=== PATIENT | female | born 1990 | race Caucasian/White ===

== ENCOUNTER 2019-01-28 17:20 | Emergency (ER) | payer MEDICAID ==
[~2019-01-28] VITALS: Ht 162.6 cm; Wt 78.0 kg
[~2019-01-28 17:20] MED LIST: ONDA4TAB6 PO
[2019-01-28] MEDS ORDERED: normal saline 1000ML IV soln IVB ONE (17:40)
[2019-01-28] MEDS ORDERED: ondansetron/PF 4mg/2ml inj IV ONE (17:40)
[2019-01-28] MEDS ORDERED: tamsulosin 0.4mg capsule PO ONE (17:40)
[2019-01-28] MEDS ORDERED: morphine 4 MG/ML inj SYRINge IV ONE (17:40)
[2019-01-28] MEDS ORDERED: ketorolac trometh. 30mg/ml inj. IV ONE (17:40)
[2019-01-28 17:52] LABS: BASOPHILS # (AUTO) 0.1 X10'3 (0-0.2); BASOPHILS % (AUTO) 0.5 % (0-1); EOSINOPHILS # (AUTO) 0.1 X10'3 (0-0.9); EOSINOPHILS % (AUTO) 1.2 % (0-6); HEMATOCRIT 40.9 % (35.0-45.0); HEMOGLOBIN 13.6 g/dl (12.0-16.0); LYMPHOCYTES # (AUTO) 1.6 X10'3 (1.1-4.8); LYMPHOCYTES % (AUTO) 13.8 % (21-51); MEAN CORPUSCULAR HEMOGLOBIN 29.6 PG (27.0-31.0); MEAN CORPUSCULAR HGB CONC 33.2 g/dL (33.0-36.5); MEAN CORPUSCULAR VOLUME 89.1 FL (78-98); MEAN PLATELET VOLUME 8.5 FL (7.4-10.4); MONOCYTES # (AUTO) 1.1 X10'3 (0-0.9); MONOCYTES % (AUTO) 9.5 % (2-12); NEUTROPHILS # (AUTO) 8.9 X10'3 (1.8-7.7); PLATELET COUNT 361 X10'3 (140-440); RED BLOOD COUNT 4.59 X10'6 (4.20-5.60); RED CELL DISTRIBUTION WIDTH 14.1 % (11.5-14.5); WHITE BLOOD COUNT 11.8 X10'3 (4.5-11.0)
[2019-01-28 18:05] LABS: ALANINE AMINOTRANSFERASE 16 U/L (12-78); ALBUMIN 4.1 G/DL (3.4-5.0); ALKALINE PHOSPHATASE 99 IU/L (46-116); ANION GAP 9 (8-16); ASPARTATE AMINO TRANSFERASE 10 U/L (10-37); BILIRUBIN,TOTAL 1.1 MG/DL (0.1-1.0); BLOOD UREA NITROGEN 8 MG/DL (7-18); BUN/CREATININE RATIO 10.3 (6.6-38.0); CALCIUM 9.4 MG/DL (8.5-10.1); CHLORIDE 100 MMOL/L (99-107); CREATININE 0.78 MG/DL (0.40-0.90); GLUCOSE 106 MG/DL (70-104); POTASSIUM 3.7 MMOL/L (3.5-5.1); SODIUM 138 MMOL/L (135-145); TOTAL CARBON DIOXIDE 28.8 MMOL/L (24-32); TOTAL PROTEIN 8.4 G/DL (6.4-8.2); eGFR 89 ML/MIN
[2019-01-28 18:32] LABS: URINE HCG NEGATIVE (NEG)
[2019-01-28 18:34] LABS: CLARITY,URINE SLIGHTLY CLOUDY (Clear); COLOR,URINE YELLOW (Yellow); GLUCOSE, URINE NEGATIVE (Neg); KETONES,URINE TRACE mg/dl (Neg); LEUKOCYTE ESTERASE ,URINE TRACE (Neg); NITRITES, URINE NEGATIVE (Neg); OCCULT BLOOD,URINE TRACE-LYSED (Neg); PROTEIN,URINE TRACE mg/dl (Neg)
[2019-01-28 18:44] LABS: UA COLLECTION TYPE CLN CATCH MIDSTREAM
[2019-01-28 18:45] LABS: BACTERIA,URINE 2+ /HPF (Neg); RBC,URINE 0-2 /HPF (0-2); SQUAMOUS EPITHELIAL CELL,UR MANY /LPF (FEW)
[2019-01-28 19:42] VITALS: BP 115/68
[2019-01-28] MEDS ORDERED: FLO0.4C PO (20:14)
[2019-01-28] MEDS ORDERED: NAPR-56 PO (20:14)
== END 2019-01-28 20:24 | disposition home or self-care (01) ==
LOC: ER 17:21
DX: R10.31 Right lower quadrant pain (principal); R19.7 Diarrhea, unspecified; Z90.49 Acquired absence of other specified parts of digestive tract; Z88.2 Allergy status to sulfonamides; Z91.040 Latex allergy status; Z79.899 Other long term (current) drug therapy
CPT/HCPCS: 36415; 80053; 81001; 81025; 85025; 96361; 96374; 96375; 99283; J1885; J2270; J2405; J7030

== ENCOUNTER 2019-01-31 22:53 | Inpatient (IN) | payer MEDICAID ==
[~2019-01-31] VITALS: Ht 163.8 cm; Wt 79.0 kg
[~2019-01-31 22:53] MED LIST changes: +FLO0.4C PO; +NAPR-56 PO
[2019-01-31 23:50] LABS: CLARITY,URINE CLEAR (Clear); COLOR,URINE YELLOW (Yellow); GLUCOSE, URINE NEGATIVE (Neg); KETONES,URINE NEGATIVE (Neg); LEUKOCYTE ESTERASE ,URINE NEGATIVE (Neg); NITRITES, URINE POSITIVE (Neg); OCCULT BLOOD,URINE TRACE-INTACT (Neg); PH,URINE 8.5 (4.8-8.0); PROTEIN,URINE NEGATIVE (Neg); UROBILINOGEN,URINE 0.2 E.U/dL (0.2-1.0)
[2019-01-31 23:52] LABS: BASOPHILS # (AUTO) 0.1 X10'3 (0-0.2); BASOPHILS % (AUTO) 0.6 % (0-1); EOSINOPHILS # (AUTO) 0.3 X10'3 (0-0.9); EOSINOPHILS % (AUTO) 1.9 % (0-6); HEMATOCRIT 36.4 % (35.0-45.0); HEMOGLOBIN 12.6 g/dl (12.0-16.0); LYMPHOCYTES # (AUTO) 1.2 X10'3 (1.1-4.8); LYMPHOCYTES % (AUTO) 7.4 % (21-51); MEAN CORPUSCULAR HEMOGLOBIN 29.9 PG (27.0-31.0); MEAN CORPUSCULAR HGB CONC 34.5 g/dL (33.0-36.5); MEAN CORPUSCULAR VOLUME 86.7 FL (78-98); MEAN PLATELET VOLUME 8.6 FL (7.4-10.4); MONOCYTES # (AUTO) 1.4 X10'3 (0-0.9); MONOCYTES % (AUTO) 8.9 % (2-12); NEUTROPHILS # (AUTO) 12.8 X10'3 (1.8-7.7); NEUTROPHILS % (AUTO) 81.2 % (42-75); PLATELET COUNT 354 X10'3 (140-440); RED CELL DISTRIBUTION WIDTH 14.4 % (11.5-14.5); WHITE BLOOD COUNT 15.7 X10'3 (4.5-11.0)
[2019-01-31 23:56] LABS: UA COLLECTION TYPE CLN CATCH MIDSTREAM
[2019-01-31 23:58] LABS: BACTERIA,URINE 3+ /HPF (Neg); RBC,URINE NONE SEEN /HPF (0-2); SQUAMOUS EPITHELIAL CELL,UR FEW /LPF (FEW); WBC,URINE 0-4 /HPF (0-4)
[2019-02-01 00:04] LABS: ALANINE AMINOTRANSFERASE 14 U/L (12-78); ALBUMIN 3.7 G/DL (3.4-5.0); ALBUMIN/GLOBULIN RATIO 0.9 (1.1-1.5); ALKALINE PHOSPHATASE 81 IU/L (46-116); ANION GAP 4 (8-16); ASPARTATE AMINO TRANSFERASE 11 U/L (10-37); BILIRUBIN,TOTAL 0.5 MG/DL (0.1-1.0); BLOOD UREA NITROGEN 7 MG/DL (7-18); CALCIUM 9.2 MG/DL (8.5-10.1); CHLORIDE 103 MMOL/L (99-107); GLUCOSE 116 MG/DL (70-104); LIPASE < 50 U/L (73-393); POTASSIUM 3.6 MMOL/L (3.5-5.1); SODIUM 136 MMOL/L (135-145); TOTAL CARBON DIOXIDE 29.1 MMOL/L (24-32); TOTAL PROTEIN 7.7 G/DL (6.4-8.2); eGFR > 90 ML/MIN
[2019-02-01] MEDS ORDERED: normal saline 1000ML IV soln IV ONE (01:45)
[2019-02-01] MEDS ORDERED: CefTRIAXone 2gm/D5W 50ml 50 ML IV ONE (01:45)
[2019-02-01] MEDS ORDERED: morphine 4 MG/ML inj SYRINge IV ONE (03:35)
[2019-02-01] MEDS ORDERED: morphine 2 MG/ML inj. syringe IV PRN ×2 (03:35→06:00)
--- NOTE | 2019-02-01 03:36 | NUR ---
Pt. transferred to CT scan by tech at this time.
[2019-02-01] MEDS ORDERED: LORA-268 PO (05:39)
[2019-02-01] MEDS ORDERED: CYCL-1 PO (05:39)
[2019-02-01] MEDS ORDERED: magnesium 4gm in 100ml NS 100 ML IV PRN (05:45)
[2019-02-01] MEDS ORDERED: magnesium hydroxide 30ml (MOM) UD suspension PO PRN (05:45)
[2019-02-01] MEDS ORDERED: potassium CL 10mEq/100ml bag 100 ML IV PRN ×2 (05:45)
[2019-02-01] MEDS ORDERED: acetaminophen 325mg tablet PO PRN ×2 (05:45)
[2019-02-01] MEDS ORDERED: magnesium Cl slow-release 64mg tablet PO PRN (05:45)
[2019-02-01] MEDS ORDERED: normal saline 1000ml 1,000 ML IV ONE (05:45)
[2019-02-01] MEDS ORDERED: mag hydrox/Alum hydrox/simeth 30ml oral suspension PO PRN (05:45)
[2019-02-01] MEDS ORDERED: magnesium 2GM in 50ml NS 50 ML IV PRN (05:45)
[2019-02-01] MEDS ORDERED: potassium Cl 20 mEq SR tablet PO PRN ×2 (05:45)
[2019-02-01] MEDS ORDERED: cyclobenzaprine 10mg tablet PO PRN (05:55)
[2019-02-01] MEDS ORDERED: LORazepam 0.5 MG tablet PO PRN (05:55)
--- NOTE | 2019-02-01 06:38 | NUR ---
ATTEMPTED TO CALL REPORT. NO RN ASSIGNED. WILL CALL BACK.
--- NOTE | 2019-02-01 06:53 | NUR ---
ATTEMPTED TO CALL REPORT. NO RN ASSIGNED, WILL CALL BACK
--- NOTE | 2019-02-01 07:03 | NUR ---
RECEIVED REPORT FORM ZOE LA IN ER
[2019-02-01 07:27] VITALS: BP 113/88
[2019-02-01] MEDS: ibuprofen tablet 400 MG TABLET PO SCH ×3 (08:00→20:11)
[2019-02-01] MEDS: K and/or MAG REPLACEMENT MC SCH ×2 (08:00→20:00)
[2019-02-01] MEDS: lactobacillus rhamnosus 10,000 MMU CELLS/CAPSULE PO SCH ×2 (09:02→20:11)
[2019-02-01] MEDS: ondansetron/PF 4mg/2ml inj IV PRN ×2 (09:03→15:28)
[2019-02-01 11:00] VITALS: BP 132/62
--- NOTE | 2019-02-01 15:00 | NUR ---
GAVE REPORT TO ZOE WORLEY AND ZOE HOOKER
--- NOTE | 2019-02-01 15:39 | NUR ---
Pt. states she is a daily smoker and would like a smoking patch. messaged Dr Connors for a smoking patch.
[2019-02-01] MEDS: nicotine 14mg patch - 24hr TD SCH (16:26)
[2019-02-01 18:00] VITALS: BP 118/75
--- NOTE | 2019-02-01 18:13 | NUR ---
Patient in room [facility] 341. I have received report from Delaney RN and Chaka RN and had the opportunity to ask questions and assume patient care.
--- NOTE | 2019-02-01 18:46 | NUR ---
Problems reprioritized. Patient report given, questions answered & plan of care reviewed with ZOE MARRERO .
[2019-02-02 00:19] VITALS: BP 111/83
[2019-02-02 05:28] LABS: BASOPHILS # (AUTO) 0.1 X10'3 (0-0.2); BASOPHILS % (AUTO) 0.7 % (0-1); EOSINOPHILS # (AUTO) 0.3 X10'3 (0-0.9); EOSINOPHILS % (AUTO) 4.2 % (0-6); HEMATOCRIT 31.8 % (35.0-45.0); HEMOGLOBIN 10.9 g/dl (12.0-16.0); LYMPHOCYTES % (AUTO) 41.7 % (21-51); MEAN CORPUSCULAR HEMOGLOBIN 30.4 PG (27.0-31.0); MEAN CORPUSCULAR HGB CONC 34.3 g/dL (33.0-36.5); MEAN CORPUSCULAR VOLUME 88.7 FL (78-98); MEAN PLATELET VOLUME 8.7 FL (7.4-10.4); MONOCYTES # (AUTO) 0.6 X10'3 (0-0.9); NEUTROPHILS # (AUTO) 3.3 X10'3 (1.8-7.7); NEUTROPHILS % (AUTO) 45.4 % (42-75); PLATELET COUNT 272 X10'3 (140-440); RED BLOOD COUNT 3.59 X10'6 (4.20-5.60); RED CELL DISTRIBUTION WIDTH 13.7 % (11.5-14.5); WHITE BLOOD COUNT 7.3 X10'3 (4.5-11.0)
[2019-02-02 06:01] LABS: ALBUMIN 2.9 G/DL (3.4-5.0); ANION GAP 7 (8-16); BLOOD UREA NITROGEN 4 MG/DL (7-18); BUN/CREATININE RATIO 5.7 (6.6-38.0); CALCIUM 8.7 MG/DL (8.5-10.1); CHLORIDE 106 MMOL/L (99-107); GLUCOSE 94 MG/DL (70-104); POTASSIUM 3.6 MMOL/L (3.5-5.1); SODIUM 142 MMOL/L (135-145); TOTAL CARBON DIOXIDE 28.7 MMOL/L (24-32); eGFR > 90 ML/MIN
--- NOTE | 2019-02-02 06:46 | NUR ---
Problems reprioritized. Patient report given, questions answered & plan of care reviewed with ZOE Baltazar.
[2019-02-02 07:00] VITALS: BP 111/65
[2019-02-02] MEDS: K and/or MAG REPLACEMENT MC SCH (08:00)
[2019-02-02] MEDS: nicotine 14mg patch - 24hr TD SCH (08:00)
[2019-02-02] MEDS ORDERED: CIPR-259 PO (08:40)
[2019-02-02] MEDS: ibuprofen tablet 400 MG TABLET PO SCH (08:50)
[2019-02-02] MEDS: lactobacillus rhamnosus 10,000 MMU CELLS/CAPSULE PO SCH (08:50)
--- NOTE | 2019-02-02 10:30 | NUR ---
Patient discharged home. Patient IV removed, patient educated on signs and symptoms for which to return to the hospital and when and how to follow up with primary care provider. Patient alert, oriented, and stable for discharge. Patient verbalized understanding of all discharge instructions and left with all belongings. Medications called into pharmacy, importance of take entirety of antibiotics was emphasized.
[2019-02-02] MEDS ORDERED: CefTRIAXone 2gm/D5W 50ml 50 ML IV SCH (21:00)
== END 2019-02-02 10:45 | disposition home or self-care (01) | DRG 463 ==
LOC: ER 22:54 → ED HOLD 02-01 05:43 → SUR 3N 02-01 07:10
PROVIDERS: ADMIT Hospitalist; ATTEND Internal Medicine
DX: N10 Acute pyelonephritis (principal); B96.20 Unspecified Escherichia coli [E. coli] as the cause of diseases classified elsewhere; F17.210 Nicotine dependence, cigarettes, uncomplicated; N20.0 Calculus of kidney; Z90.49 Acquired absence of other specified parts of digestive tract; Z88.2 Allergy status to sulfonamides; Z91.040 Latex allergy status; Z79.899 Other long term (current) drug therapy; Z71.6 Tobacco abuse counseling
CPT/HCPCS: 36415; 71045; 74176; 80048; 80053; 81001; 83605; 83690; 83735; 84145; 85025; 87040; 87077; 87081; 87088; 87186; 87502; 87503; 96365; 96375; 99285; G0378; J0696; J2270; J2405

== ENCOUNTER 2019-10-04 14:41 | Inpatient (IN) | payer MEDICAID ==
[~2019-10-04] VITALS: Ht 165.1 cm; Wt 81.8 kg
[~2019-10-04 14:41] MED LIST changes: +CYCL-1 PO; -FLO0.4C PO; +LORA-268 PO; -NAPR-56 PO; -ONDA4TAB6 PO
[2019-10-04] MEDS ORDERED: ondansetron/PF 4mg/2ml inj IV ONE (15:10)
[2019-10-04] MEDS ORDERED: normal saline 1000ML IV soln IVB ONE ×2 (15:10→15:40)
[2019-10-04 15:19] LABS: BASOPHILS # (AUTO) 0.1 X10'3 (0-0.2); BASOPHILS % (AUTO) 0.3 % (0-1); EOSINOPHILS % (AUTO) 0 % (0-6); HEMATOCRIT 39.6 % (35.0-45.0); LYMPHOCYTES # (AUTO) 0.7 X10'3 (1.1-4.8); LYMPHOCYTES % (AUTO) 3.3 % (21-51); MEAN CORPUSCULAR HEMOGLOBIN 28.5 PG (27.0-31.0); MEAN CORPUSCULAR HGB CONC 32.8 g/dL (33.0-36.5); MEAN CORPUSCULAR VOLUME 86.7 FL (78-98); MEAN PLATELET VOLUME 9.4 FL (7.4-10.4); MONOCYTES # (AUTO) 0.4 X10'3 (0-0.9); MONOCYTES % (AUTO) 1.6 % (2-12); NEUTROPHILS # (AUTO) 20.9 X10'3 (1.8-7.7); NEUTROPHILS % (AUTO) 94.8 % (42-75); PLATELET COUNT 348 X10'3 (140-440); RED BLOOD COUNT 4.57 X10'6 (4.20-5.60); RED CELL DISTRIBUTION WIDTH 13.5 % (11.5-14.5)
[2019-10-04 15:33] LABS: ALANINE AMINOTRANSFERASE 18 U/L (12-78); ALBUMIN 4.1 G/DL (3.4-5.0); ALKALINE PHOSPHATASE 72 IU/L (46-116); ANION GAP 15 (8-16); ASPARTATE AMINO TRANSFERASE 19 U/L (10-37); BILIRUBIN,TOTAL 0.9 MG/DL (0.1-1.0); BLOOD UREA NITROGEN 10 MG/DL (7-18); CALCIUM 8.9 MG/DL (8.5-10.1); CHLORIDE 102 MMOL/L (99-107); CREATININE 0.91 MG/DL (0.40-0.90); GLUCOSE 153 MG/DL (70-104); LIPASE < 50 U/L (73-393); POTASSIUM 3.9 MMOL/L (3.5-5.1); SODIUM 138 MMOL/L (135-145); TOTAL CARBON DIOXIDE 20.9 MMOL/L (24-32); TOTAL PROTEIN 8.1 G/DL (6.4-8.2); eGFR 75 ML/MIN
[2019-10-04] MEDS ORDERED: proCHLORperazine 10 MG/2 ml inj IV ONE (15:40)
[2019-10-04 15:48] LABS: HCG SERUM QL NEGATIVE
[2019-10-04 17:27] LABS: CLARITY,URINE CLEAR (Clear); COLOR,URINE STRAW (Yellow); GLUCOSE, URINE NEGATIVE (Neg); KETONES,URINE 40 mg/dl (Neg); LEUKOCYTE ESTERASE ,URINE NEGATIVE (Neg); NITRITES, URINE NEGATIVE (Neg); OCCULT BLOOD,URINE SMALL (Neg); PROTEIN,URINE NEGATIVE (Neg); UROBILINOGEN,URINE 0.2 E.U/dL (0.2-1.0)
[2019-10-04 17:29] LABS: UA COLLECTION TYPE CLN CATCH MIDSTREAM
[2019-10-04 17:34] LABS: BACTERIA,URINE FEW /HPF (Neg); MUCUS STRANDS FEW /LPF (Neg); SQUAMOUS EPITHELIAL CELL,UR MODERATE /LPF (FEW); WBC,URINE 0-4 /HPF (0-4)
[2019-10-04 17:36] LABS: URINE AMPHETAMINE SCREEN NEGATIVE (Neg); URINE BARBITUATE SCREEN NEGATIVE (Neg); URINE BENZODIAZEPINES SCREEN NEGATIVE (Neg); URINE CANNABINOID SCREEN POSITIVE (Neg); URINE COCAINE SCREEN NEGATIVE (Neg); URINE METHADONE SCREEN NEGATIVE (Neg); URINE OPIATE SCREEN NEGATIVE (Neg); URINE PHENCYCLIDINE SCREEN NEGATIVE (Neg)
[2019-10-04] MEDS ORDERED: GABA-530 PO (17:37)
[2019-10-04] MEDS ORDERED: magnesium 4gm in 100ml NS 100 ML IV PRN (18:00)
[2019-10-04] MEDS ORDERED: acetaminophen 325mg tablet PO PRN ×2 (18:00)
[2019-10-04] MEDS ORDERED: morphine 2 MG/ML inj. syringe IV PRN ×2 (18:00)
[2019-10-04] MEDS ORDERED: potassium CL 10mEq/100ml bag 100 ML IV PRN (18:00)
[2019-10-04] MEDS ORDERED: magnesium Cl slow-release 64mg tablet PO PRN (18:00)
[2019-10-04] MEDS ORDERED: HYDROcodone/acetaminophen 5mg/325mg tablet PO PRN (18:00)
[2019-10-04] MEDS ORDERED: potassium Cl 20 mEq SR tablet PO PRN (18:00)
[2019-10-04] MEDS ORDERED: HYDROcodone/acetaminophen 10/325mg tab PO PRN (18:00)
[2019-10-04] MEDS ORDERED: magnesium 2GM in 50ml NS 50 ML IV PRN (18:00)
[2019-10-04 18:07] LABS: URINE HCG NEGATIVE (NEG)
[2019-10-04] MEDS: normal saline 1000ml 1,000 ML IV SCH (18:16)
[2019-10-04] MEDS ORDERED: piperacillin/tazo 3.375gm/50ml 50 ML IV SCH (19:00)
[2019-10-04] MEDS: VANCOmycin 1250MG/NS 250ml Bag 250 ML IV SCH (19:21)
[2019-10-04] MEDS: heparin, porcine 5000 units/ml vial SQ SCH (20:00)
[2019-10-04] MEDS: K and/or MAG REPLACEMENT MC SCH (20:00)
--- NOTE | 2019-10-04 20:22 | NUR ---
Tried to call report to the floor. Told the RN was in an isolation room and would call back in a few minutes.
[2019-10-04] MEDS ORDERED: temazepam 15mg capsule PO PRN (21:00)
[2019-10-04 21:02] VITALS: BP 135/67
[2019-10-04] MEDS ORDERED: diatrozoate meglu/diatrozoate sod (37% iodine) 120ML oral solution PO SCH (21:10)
[2019-10-04] MEDS: ondansetron/PF 4mg/2ml inj IV PRN (21:51)
[2019-10-04] MEDS: diatr meglu/diatrizoate 30ml oral sol.-(3 dose) bottle PO SCH ×2 (22:15→22:34)
--- NOTE | 2019-10-04 22:37 | NUR ---
Patient refused gastrografin stating "I know I'm going to throw it up." Explained the benefits of taking it for her CT in the morning but she still refuses it.
--- NOTE | 2019-10-04 22:41 | NUR ---
Spoke with Dr. Diane in regards to patients lactic level. I stated that it came down to 2.8 and another redraw was ordered for 2300. I asked him if he wanted to make any changes. There is no new orders at this time and he stated that we do not need to continue to check her lactic level after the next one at 2300.
[2019-10-05] MEDS: piperacillin/tazo 3.375gm/50ml 50 ML IV SCH ×3 (00:04→23:12)
[2019-10-05] MEDS: normal saline 1000ml 1,000 ML IV SCH ×3 (01:48→17:59)
[2019-10-05] MEDS: VANCOmycin 1250MG/NS 250ml Bag 250 ML IV SCH ×2 (02:40→18:28)
[2019-10-05 06:00] VITALS: BP 106/64
[2019-10-05 06:11] LABS: BASOPHILS % (AUTO) 0.2 % (0-1); EOSINOPHILS # (AUTO) 0.1 X10'3 (0-0.9); EOSINOPHILS % (AUTO) 0.5 % (0-6); HEMATOCRIT 31.2 % (35.0-45.0); HEMOGLOBIN 10.4 g/dl (12.0-16.0); LYMPHOCYTES # (AUTO) 2.7 X10'3 (1.1-4.8); MEAN CORPUSCULAR HEMOGLOBIN 28.9 PG (27.0-31.0); MEAN CORPUSCULAR HGB CONC 33.3 g/dL (33.0-36.5); MEAN CORPUSCULAR VOLUME 86.7 FL (78-98); MEAN PLATELET VOLUME 9.9 FL (7.4-10.4); MONOCYTES % (AUTO) 6.7 % (2-12); NEUTROPHILS # (AUTO) 11.8 X10'3 (1.8-7.7); NEUTROPHILS % (AUTO) 75.6 % (42-75); PLATELET COUNT 240 X10'3 (140-440); RED CELL DISTRIBUTION WIDTH 13.4 % (11.5-14.5); WHITE BLOOD COUNT 15.6 X10'3 (4.5-11.0)
--- NOTE | 2019-10-05 06:11 | NUR ---
Problems reprioritized. Patient report given, questions answered & plan of care reviewed with Olga ENRIQUEZ.
--- NOTE | 2019-10-05 06:24 | NUR ---
Patient in room [facility]TH[facility] 4012. I have received report from Cindy ENRIQUEZ and had the opportunity to ask questions and assume patient care.
[2019-10-05 06:34] LABS: ALANINE AMINOTRANSFERASE 14 U/L (12-78); ALKALINE PHOSPHATASE 47 IU/L (46-116); ANION GAP 11 (8-16); ASPARTATE AMINO TRANSFERASE 14 U/L (10-37); BLOOD UREA NITROGEN 7 MG/DL (7-18); BUN/CREATININE RATIO 11.5 (6.6-38.0); CALCIUM 7.2 MG/DL (8.5-10.1); CHLORIDE 108 MMOL/L (99-107); CREATININE 0.61 MG/DL (0.40-0.90); GLUCOSE 94 MG/DL (70-104); MAGNESIUM 1.4 MG/DL (1.5-2.4); POTASSIUM 3.1 MMOL/L (3.5-5.1); SODIUM 141 MMOL/L (135-145); TOTAL CARBON DIOXIDE 21.6 MMOL/L (24-32); TOTAL PROTEIN 5.9 G/DL (6.4-8.2); eGFR > 90 ML/MIN
[2019-10-05] MEDS: K and/or MAG REPLACEMENT MC SCH ×2 (08:00→19:02)
[2019-10-05] MEDS: ondansetron/PF 4mg/2ml inj IV PRN ×3 (08:11→20:53)
[2019-10-05] MEDS: heparin, porcine 5000 units/ml vial SQ SCH ×2 (08:13→19:16)
--- NOTE | 2019-10-05 08:13 | NUR ---
Heparin administration was double checked and observed for nursing program coordinator Mela Dillon.
[2019-10-05] MEDS: potassium CL 10mEq/100ml bag 100 ML IV PRN ×2 (08:14→16:53)
[2019-10-05] MEDS: pantoprazole 40 MG vial IV SCH (09:01)
--- NOTE | 2019-10-05 09:56 | NUR ---
PAGER ID: [phone] MESSAGE: RE: [id number] Maria M Gambino Pt refused oral contrast for CT d/t vomiting. RILEY [id number]
[2019-10-05 10:05] VITALS: BP 118/70
[2019-10-05 10:45] LABS: C DIFF ANTIGEN NEGATIVE (NEGATIVE); C DIFF SPECIMEN=DIARRHEA? ACCEPTABLE; C DIFFICILE TOXINS A&B NEGATIVE (Neg)
[2019-10-05] MEDS ORDERED: iohexol 300mg/ml 100ml inj. ONE (11:21)
[2019-10-05] MEDS: metoclopramide 5 mg/ml inj IV PRN ×2 (12:05→19:03)
[2019-10-05 14:23] LABS: BASOPHILS % (AUTO) 0.3 % (0-1); EOSINOPHILS # (AUTO) 0.1 X10'3 (0-0.9); EOSINOPHILS % (AUTO) 0.4 % (0-6); HEMOGLOBIN 11.3 g/dl (12.0-16.0); LYMPHOCYTES # (AUTO) 2.1 X10'3 (1.1-4.8); LYMPHOCYTES % (AUTO) 14.8 % (21-51); MEAN CORPUSCULAR HEMOGLOBIN 29.5 PG (27.0-31.0); MEAN CORPUSCULAR HGB CONC 34.2 g/dL (33.0-36.5); MEAN CORPUSCULAR VOLUME 86.2 FL (78-98); MEAN PLATELET VOLUME 9.5 FL (7.4-10.4); MONOCYTES # (AUTO) 0.9 X10'3 (0-0.9); MONOCYTES % (AUTO) 6.4 % (2-12); NEUTROPHILS % (AUTO) 78.1 % (42-75); PLATELET COUNT 248 X10'3 (140-440); RED BLOOD COUNT 3.82 X10'6 (4.20-5.60); RED CELL DISTRIBUTION WIDTH 13.3 % (11.5-14.5); WHITE BLOOD COUNT 14.1 X10'3 (4.5-11.0)
[2019-10-05 18:00] VITALS: BP 128/66
--- NOTE | 2019-10-05 18:07 | NUR ---
Problems reprioritized. Patient report given, questions answered & plan of care reviewed with Cindy ENRIQUEZ.
--- NOTE | 2019-10-05 18:25 | NUR ---
Problems reprioritized. Patient report given, questions answered & plan of care reviewed with Cindy ENRIQUEZ.
[2019-10-05] MEDS ORDERED: VANCOMYCIN LEVEL IV ONE (18:30)
[2019-10-05] MEDS: lactobacillus rhamnosus 10,000 MMU CELLS/CAPSULE PO SCH (19:10)
[2019-10-05 22:00] VITALS: BP 121/63
[2019-10-05] MEDS: diatr meglu/diatrizoate 30ml oral sol.-(3 dose) bottle PO SCH (22:08)
[2019-10-06] MEDS: VANCOmycin 1250MG/NS 250ml Bag 250 ML IV SCH (00:34)
[2019-10-06] MEDS: normal saline 1000ml 1,000 ML IV SCH ×2 (00:35→09:59)
[2019-10-06] MEDS: metoclopramide 5 mg/ml inj IV PRN ×2 (00:55→07:31)
[2019-10-06] MEDS: ondansetron/PF 4mg/2ml inj IV PRN ×2 (02:59→11:49)
--- NOTE | 2019-10-06 05:58 | NUR ---
Problems reprioritized. Patient report given, questions answered & plan of care reviewed with Bettina ENRIQUEZ.
[2019-10-06 06:10] LABS: BASOPHILS # (AUTO) 0.1 X10'3 (0-0.2); BASOPHILS % (AUTO) 0.5 % (0-1); EOSINOPHILS % (AUTO) 0.2 % (0-6); HEMATOCRIT 34.4 % (35.0-45.0); HEMOGLOBIN 11.5 g/dl (12.0-16.0); LYMPHOCYTES # (AUTO) 2.7 X10'3 (1.1-4.8); LYMPHOCYTES % (AUTO) 18.8 % (21-51); MEAN CORPUSCULAR HEMOGLOBIN 28.9 PG (27.0-31.0); MEAN CORPUSCULAR HGB CONC 33.4 g/dL (33.0-36.5); MEAN CORPUSCULAR VOLUME 86.6 FL (78-98); MEAN PLATELET VOLUME 9.3 FL (7.4-10.4); MONOCYTES # (AUTO) 0.9 X10'3 (0-0.9); NEUTROPHILS # (AUTO) 10.7 X10'3 (1.8-7.7); NEUTROPHILS % (AUTO) 74.5 % (42-75); PLATELET COUNT 242 X10'3 (140-440); RED BLOOD COUNT 3.98 X10'6 (4.20-5.60); RED CELL DISTRIBUTION WIDTH 13.4 % (11.5-14.5); WHITE BLOOD COUNT 14.4 X10'3 (4.5-11.0)
--- NOTE | 2019-10-06 06:28 | NUR ---
Patient in room ORTH[facility] 4012. I have received report from Cindy and had the opportunity to ask questions and assume patient care.
[2019-10-06 06:35] LABS: ALANINE AMINOTRANSFERASE 20 U/L (12-78); ALBUMIN 3.4 G/DL (3.4-5.0); ALBUMIN/GLOBULIN RATIO 1.1 (1.1-1.5); ALKALINE PHOSPHATASE 55 IU/L (46-116); ANION GAP 14 (8-16); ASPARTATE AMINO TRANSFERASE 16 U/L (10-37); BILIRUBIN,TOTAL 0.9 MG/DL (0.1-1.0); BLOOD UREA NITROGEN 4 MG/DL (7-18); BUN/CREATININE RATIO 5.6 (6.6-38.0); CALCIUM 7.6 MG/DL (8.5-10.1); CHLORIDE 104 MMOL/L (99-107); CREATININE 0.72 MG/DL (0.40-0.90); GLUCOSE 99 MG/DL (70-104); MAGNESIUM 1.7 MG/DL (1.5-2.4); SODIUM 138 MMOL/L (135-145); TOTAL CARBON DIOXIDE 20.4 MMOL/L (24-32); TOTAL PROTEIN 6.6 G/DL (6.4-8.2); eGFR > 90 ML/MIN
--- NOTE | 2019-10-06 07:01 | NUR ---
Received a critical lab of K+ of 3.0 Internet is down
[2019-10-06] MEDS ORDERED: VANCOmycin 1250MG/NS 250ml Bag 250 ML IV SCH (07:03)
[2019-10-06] MEDS: potassium CL 10mEq/100ml bag 100 ML IV PRN (07:22)
[2019-10-06] MEDS: pantoprazole 40 MG vial IV SCH (07:31)
[2019-10-06] MEDS: heparin, porcine 5000 units/ml vial SQ SCH (07:31)
[2019-10-06] MEDS: lactobacillus rhamnosus 10,000 MMU CELLS/CAPSULE PO SCH (07:33)
[2019-10-06] MEDS: potassium Cl 20 mEq SR tablet PO PRN ×2 (08:23→09:51)
--- NOTE | 2019-10-06 08:40 | NUR ---
PAGER ID: [phone] MESSAGE: [id number] Maria M Gambino can I get a Imodium order for patient diarrhea shes had 4 bowl movements since 6 negative for cdiff also pt K+3.0 trying to replace patient . [id number] Bettina
--- NOTE | 2019-10-06 09:07 | NUR ---
Patient k+ was3.0 tried hanging first IV bag and the potassium was burning arm to bad so I stopped the administration. Pulled 2x 20 MEQ K Dura crushed and attempted to give to patient with ice cream.Patient immediately spit up and said she wants to try the whole tabs now.
[2019-10-06] MEDS: piperacillin/tazo 3.375gm/50ml 50 ML IV SCH (11:49)
[2019-10-06] MEDS ORDERED: METR-159 PO (12:46)
[2019-10-06] MEDS ORDERED: CIPR-230 PO (12:46)
[2019-10-07] MEDS ORDERED: VANCOMYCIN LEVEL IV ONE (00:30)
== END 2019-10-06 14:00 | disposition home or self-care (01) | DRG 249 ==
LOC: ER 14:41 → ED HOLD 17:59 → UNDOADMIN 17:59 → ED HOLD 20:53 → ORTHO 4S 20:53
PROVIDERS: ADMIT Internal Medicine; ATTEND Internal Medicine
DX: K52.9 Noninfective gastroenteritis and colitis, unspecified (principal); F12.10 Cannabis abuse, uncomplicated; F17.210 Nicotine dependence, cigarettes, uncomplicated; F31.9 Bipolar disorder, unspecified; F43.10 Post-traumatic stress disorder, unspecified; E87.6 Hypokalemia; Z90.49 Acquired absence of other specified parts of digestive tract; Z88.2 Allergy status to sulfonamides; Z88.8 Allergy status to other drugs, medicaments and biological substances; Z91.040 Latex allergy status
CPT/HCPCS: 36415; 74176; 74177; 80053; 80202; 80305; 81001; 81025; 83605; 83690; 83735; 84145; 84703; 85025; 87040; 87081; 87324; 87449; 99285; C9113; G0378; J0780; J1644; J2405; J2543; J2765; J3370; J3480; J7030; Q9963; Q9967

== ENCOUNTER 2019-12-02 12:01 | Emergency (ER) | payer MEDICAID ==
[~2019-12-02] VITALS: Ht 165.1 cm; Wt 82.6 kg
[~2019-12-02 12:01] MED LIST changes: -CYCL-1 PO; +GABA-530 PO; -LORA-268 PO
[2019-12-02 13:32] LABS: BASOPHILS % (AUTO) 0.2 % (0-1); EOSINOPHILS % (AUTO) 0 % (0-6); HEMOGLOBIN 13.3 g/dl (12.0-16.0); LYMPHOCYTES # (AUTO) 0.7 X10'3 (1.1-4.8); LYMPHOCYTES % (AUTO) 3.8 % (21-51); MEAN CORPUSCULAR HEMOGLOBIN 28.9 PG (27.0-31.0); MEAN CORPUSCULAR HGB CONC 33.4 g/dL (33.0-36.5); MEAN CORPUSCULAR VOLUME 86.6 FL (78-98); MEAN PLATELET VOLUME 9.2 FL (7.4-10.4); MONOCYTES # (AUTO) 0.6 X10'3 (0-0.9); MONOCYTES % (AUTO) 3.6 % (2-12); NEUTROPHILS % (AUTO) 92.4 % (42-75); PLATELET COUNT 426 X10'3 (140-440); RED BLOOD COUNT 4.62 X10'6 (4.20-5.60); RED CELL DISTRIBUTION WIDTH 13.5 % (11.5-14.5); WHITE BLOOD COUNT 17.3 X10'3 (4.5-11.0)
[2019-12-02 13:48] LABS: ALANINE AMINOTRANSFERASE 26 U/L (12-78); ALBUMIN 4.3 G/DL (3.4-5.0); ALBUMIN/GLOBULIN RATIO 1.1 (1.1-1.5); ALKALINE PHOSPHATASE 85 IU/L (46-116); ANION GAP 17 (8-16); ASPARTATE AMINO TRANSFERASE 15 U/L (10-37); BILIRUBIN,TOTAL 0.7 MG/DL (0.1-1.0); BLOOD UREA NITROGEN 7 MG/DL (7-18); BUN/CREATININE RATIO 7.9 (6.6-38.0); CALCIUM 9.2 MG/DL (8.5-10.1); CHLORIDE 100 MMOL/L (99-107); CREATININE 0.89 MG/DL (0.40-0.90); GLUCOSE 185 MG/DL (70-104); POTASSIUM 3.6 MMOL/L (3.5-5.1); SODIUM 138 MMOL/L (135-145); TOTAL CARBON DIOXIDE 21.5 MMOL/L (24-32); TOTAL PROTEIN 8.3 G/DL (6.4-8.2); eGFR 77 ML/MIN
[2019-12-02 13:54] LABS: BETA HCG,QUANTITATIVE < 1.0 mIU/ml; ETHANOL < 0.010 GM/DL (0.0-0.010); LIPASE < 50 U/L (73-393)
[2019-12-02] MEDS ORDERED: normal saline 1000ML IV soln IVB ONE ×2 (13:55→15:55)
[2019-12-02] MEDS ORDERED: morphine 10mg/ml inj. IV ONE (13:55)
[2019-12-02] MEDS ORDERED: LORazepam 2 mg/ml vial IV ONE (13:55)
[2019-12-02] MEDS ORDERED: proCHLORperazine 10 MG/2 ml inj IV ONE (13:55)
[2019-12-02] MEDS ORDERED: PROC25SU31 RC (16:12)
[2019-12-02 16:23] LABS: COLOR,URINE YELLOW (Yellow); GLUCOSE, URINE NEGATIVE (Neg); KETONES,URINE 40 mg/dl (Neg); LEUKOCYTE ESTERASE ,URINE NEGATIVE (Neg); NITRITES, URINE NEGATIVE (Neg); OCCULT BLOOD,URINE NEGATIVE (Neg); PROTEIN,URINE NEGATIVE (Neg); UROBILINOGEN,URINE 0.2 E.U/dL (0.2-1.0)
[2019-12-02 16:28] LABS: CLARITY,URINE SLIGHTLY CLOUDY (Clear); UA COLLECTION TYPE CLN CATCH MIDSTREAM; WBC,URINE 0-4 /HPF (0-4)
[2019-12-02 16:29] LABS: BACTERIA,URINE NONE SEEN /HPF (Neg); MUCUS STRANDS MANY /LPF (Neg); RBC,URINE NONE SEEN /HPF (0-2); SQUAMOUS EPITHELIAL CELL,UR MANY /LPF (FEW)
[2019-12-02 16:36] LABS: URINE AMPHETAMINE SCREEN NEGATIVE (Neg); URINE BARBITUATE SCREEN NEGATIVE (Neg); URINE BENZODIAZEPINES SCREEN NEGATIVE (Neg); URINE CANNABINOID SCREEN POSITIVE (Neg); URINE COCAINE SCREEN NEGATIVE (Neg); URINE METHADONE SCREEN NEGATIVE (Neg); URINE OPIATE SCREEN POSITIVE (Neg); URINE PHENCYCLIDINE SCREEN NEGATIVE (Neg)
[2019-12-02 17:44] VITALS: BP 107/74
== END 2019-12-02 17:46 | disposition home or self-care (01) ==
LOC: ER 12:02
DX: R10.9 Unspecified abdominal pain (principal); R11.2 Nausea with vomiting, unspecified; R19.7 Diarrhea, unspecified; K80.20 Calculus of gallbladder without cholecystitis without obstruction; F12.10 Cannabis abuse, uncomplicated; Z90.49 Acquired absence of other specified parts of digestive tract; Z88.2 Allergy status to sulfonamides; Z91.040 Latex allergy status
CPT/HCPCS: 36415; 80053; 80305; 80320; 81001; 83605; 83690; 84145; 84702; 85025; 87040; 96374; 96375; 99285; J0780; J2060; J2270; J7030; 96361

== ENCOUNTER 2020-03-14 11:16 | Emergency (ER) | payer MEDICAID ==
[~2020-03-14] VITALS: Ht 165.1 cm; Wt 79.0 kg
[2020-03-14] MEDS ORDERED: diphenhydrAMINE 50 mg/ml inj IV ONE (11:30)
[2020-03-14] MEDS ORDERED: normal saline 1000ml 1,000 ML IV ONE (11:30)
[2020-03-14] MEDS ORDERED: haloperidol lactate 5mg/ml inj IM ONE (11:30)
[2020-03-14] MEDS ORDERED: proCHLORperazine 10 MG/2 ml inj IV ONE (11:30)
--- NOTE | 2020-03-14 12:00 | NUR ---
Pt given a urine cup and is aware that we need a sample when she is able to get one.
[2020-03-14 12:24] LABS: BASOPHILS % (AUTO) 0.2 % (0-1); EOSINOPHILS % (AUTO) 0 % (0-6); HEMATOCRIT 38.4 % (35.0-45.0); HEMOGLOBIN 12.6 g/dl (12.0-16.0); LYMPHOCYTES # (AUTO) 0.8 X10'3 (1.1-4.8); LYMPHOCYTES % (AUTO) 6.2 % (21-51); MEAN CORPUSCULAR HEMOGLOBIN 28.4 PG (27.0-31.0); MEAN CORPUSCULAR HGB CONC 32.9 g/dL (33.0-36.5); MEAN CORPUSCULAR VOLUME 86.4 FL (78-98); MEAN PLATELET VOLUME 9.3 FL (7.4-10.4); MONOCYTES # (AUTO) 0.4 X10'3 (0-0.9); MONOCYTES % (AUTO) 3.2 % (2-12); NEUTROPHILS # (AUTO) 11.6 X10'3 (1.8-7.7); NEUTROPHILS % (AUTO) 90.4 % (42-75); PLATELET COUNT 335 X10'3 (140-440); RED BLOOD COUNT 4.45 X10'6 (4.20-5.60); RED CELL DISTRIBUTION WIDTH 13.5 % (11.5-14.5); WHITE BLOOD COUNT 12.8 X10'3 (4.5-11.0)
[2020-03-14 12:29] LABS: ALANINE AMINOTRANSFERASE 23 U/L (12-78); ALBUMIN 3.9 G/DL (3.4-5.0); ALBUMIN/GLOBULIN RATIO 1.1 (1.1-1.5); ALKALINE PHOSPHATASE 80 IU/L (46-116); ANION GAP 18 (8-16); ASPARTATE AMINO TRANSFERASE 15 U/L (10-37); BILIRUBIN,TOTAL 0.5 MG/DL (0.1-1.0); BLOOD UREA NITROGEN 10 MG/DL (7-18); BUN/CREATININE RATIO 11.9 (6.6-38.0); CALCIUM 8.8 MG/DL (8.5-10.1); CHLORIDE 104 MMOL/L (99-107); CREATININE 0.84 MG/DL (0.40-0.90); GLUCOSE 192 MG/DL (70-104); POTASSIUM 3.8 MMOL/L (3.5-5.1); SODIUM 142 MMOL/L (135-145); TOTAL PROTEIN 7.6 G/DL (6.4-8.2); eGFR 81 ML/MIN
[2020-03-14] MEDS ORDERED: ONDA4TAB6 PO (12:45)
[2020-03-14 13:02] VITALS: BP 146/90
[2020-03-14 13:02] LABS: CLARITY,URINE SLIGHTLY CLOUDY (Clear); COLOR,URINE YELLOW (Yellow); GLUCOSE, URINE NEGATIVE (Neg); KETONES,URINE >=80 mg/dl (Neg); LEUKOCYTE ESTERASE ,URINE NEGATIVE (Neg); NITRITES, URINE NEGATIVE (Neg); OCCULT BLOOD,URINE NEGATIVE (Neg); PH,URINE 8.5 (4.8-8.0); PROTEIN,URINE NEGATIVE (Neg); URINE HCG NEGATIVE (NEG); UROBILINOGEN,URINE 0.2 E.U/dL (0.2-1.0)
[2020-03-14 13:09] LABS: UA COLLECTION TYPE STRAIGHT CATH
[2020-03-14 13:10] LABS: BACTERIA,URINE NONE SEEN /HPF (Neg); MUCUS STRANDS MODERATE /LPF (Neg); RBC,URINE NONE SEEN /HPF (0-2); SQUAMOUS EPITHELIAL CELL,UR FEW /LPF (FEW); WBC,URINE 0-4 /HPF (0-4)
[2020-03-14 13:19] LABS: URINE AMPHETAMINE SCREEN NEGATIVE (Neg); URINE BARBITUATE SCREEN NEGATIVE (Neg); URINE BENZODIAZEPINES SCREEN NEGATIVE (Neg); URINE CANNABINOID SCREEN POSITIVE (Neg); URINE COCAINE SCREEN NEGATIVE (Neg); URINE METHADONE SCREEN NEGATIVE (Neg); URINE OPIATE SCREEN NEGATIVE (Neg); URINE PHENCYCLIDINE SCREEN NEGATIVE (Neg)
== END 2020-03-14 13:32 | disposition home or self-care (01) ==
LOC: ER 11:18
DX: F12.188 Cannabis abuse with other cannabis-induced disorder (principal); R11.2 Nausea with vomiting, unspecified; R19.7 Diarrhea, unspecified; R10.84 Generalized abdominal pain; Z90.49 Acquired absence of other specified parts of digestive tract; Z91.040 Latex allergy status; Z88.2 Allergy status to sulfonamides; Z79.899 Other long term (current) drug therapy
CPT/HCPCS: 36415; 80053; 80305; 81001; 81025; 85025; 96361; 96372; 96374; 96375; 99284; J0780; J1200; J1630; J7030

== ENCOUNTER 2024-10-27 11:53 | Emergency (ER) | payer MEDICAID ==
[~2024-10-27] VITALS: Ht 165.1 cm; Wt 80.1 kg
[~2024-10-27 11:53] MED LIST changes: +ONDA4TAB6 PO
[2024-10-27 12:53] LABS: CREATININE 0.95 MG/DL (0.40-0.90); TOTAL CARBON DIOXIDE 33.1 MMOL/L (24-32); eCRCL 77 ML/MIN; eGFR 69 ML/MIN
[2024-10-27 13:05] LABS: MEAN PLATELET VOLUME 9.0 FL (7.4-10.4); RED CELL DISTRIBUTION WIDTH 13.6 % (11.5-14.5)
--- NOTE | 2024-10-27 13:16 | Physician Documentation ---
History of Present Illness General Chief Complaint: Vomiting Stated Complaint: VOMITING Time Seen by MD: 13:08 Primary Medical Doctor[facility] Mode of Arrival: Ambulatory History of Present Illness Initial Comments The patient is a 33-year-old female with a history of cyclical vomiting. This episode started 6:00 a.m. yesterday morning. It has remained intractable. Medication Reconciliation Allergies: Coded Allergies: Latex, Natural Rubber (Unverified Allergy, Unknown, 10/27/24) Sulfa (Sulfonamide Antibiotics) (Unverified Allergy, Unknown, 10/27/24) adhesive (Verified Allergy, Unknown, 10/27/24) Scheduled Gabapentin (Gabapentin), 900 MG PO DAILY, (Reported) Ondansetron Hcl (Zofran), 1 TAB PO Q8H Past Medical History Past Medical History: *GI/HEPATOBILIARY*, Cholelithiasis Past Surgical History: cholecystectomy Alcohol Use: None Drug Use: marijuana Lives In: Home Review of Systems ROS Constitutional: Denies chills, fatigue, fever, weight gain or weight loss. HEENT: Denies hearing loss, sinus pressure or visual changes. Respiratory: Denies cough, shortness of breath or wheezing. Cardiovascular: Denies chest pain, pain while walking (claudication), edema or palpitations. Gastrointestinal: Nausea and vomiting Genitourinary: Denies painful urination (dysuria), excessive amount of urine (polyuria) or urinary frequency. Metabolic/Endocrine: Denies cold intolerance, heat intolerance, excessive thirst (polydipsia) or excessive hunger (polyphagia). Neurological: Denies dizziness, extremity numbness, extremity weakness, headaches, seizures or tremors. Psychiatric: Denies anxiety or depression. Integumentary: Denies breast discharge, breast lump, hives, mole change(s), rash or skin lesion. Musculoskeletal: Denies back pain, joint pain, joint swelling or neck pain. Hematologic: Denies easily bleeding, easily bruises, lymphedema or issues with blood clots. Immunologic: Denies food allergies or seasonal allergies. Physical Exam Physical Exam Vital Signs: Temperature: 98.1, Source: Oral, Heart Rate: 85, Respiratory Rate: 16, Pulse Oximetry: 95, Weight: 80.100 Physical Exam Physical Exam Vitals and nursing note reviewed. Constitutional: General: Patient is awake, alert, oriented x 4 in no acute distress and well appearing. Speech is clear and lucid. Appearance: Normal appearance. Patient is not ill-appearing, toxic-appearing or diaphoretic. HENT: Head: Normocephalic and atraumatic. Mouth/Throat: Mouth: Mucous membranes are moist. Pharynx: Oropharynx is clear. Eyes: General: No scleral icterus. Extraocular Movements: Extraocular movements intact. Pupils: Pupils are equal, round, and reactive to light. Neck: Supple, no Kernig or Brudzinski sign. Cardiovascular: Rate and Rhythm: Normal rate and regular rhythm. Heart sounds: No murmur heard. Pulmonary: Effort: No respiratory distress. Breath sounds: No wheezing, rhonchi or rales. Abdominal: General: There is no distension. Palpations: There is no fluid wave, hepatomegaly or mass. Tenderness: Epigastric tenderness Musculoskeletal: General: No swelling or deformity. Skin: Coloration: Skin is not jaundiced. Findings: No erythema or rash. Neurological: Mental Status: Patient is alert. Progress Results/Orders Results/Orders Orders - DEIDRA RYAN MD Ct Abdomen Pelvis (10/27/24 15:55) Completed Orders - DEIDRA RYAN MD Hcg, Ur Ql (10/27/24 12:06) Cbc/Diff (10/27/24 12:06) Lipase (10/27/24 12:06) Hcg Serum Ql (10/27/24 12:06) CMP (10/27/24 12:06) Man Diff (10/27/24 12:28) Ondansetron Inj. (Zofran 4mg/2ml Vial) (10/27/24 13:15) Normal Saline 1000ml (0.9% Sodium Chlori (10/27/24 13:15) Pantoprazole 40mg Iv (Protonix 40mg Iv) (10/27/24 13:14) Potassium Cl 10meq/100ml Bag (Potassium (10/27/24 13:20) MG (10/27/24 12:28) Ua W/Microscopic, Cult If Ind (10/27/24 13:00) Prochlorperazine Inj (Compazine Inj) (10/27/24 13:50) Diphenhydramine Inj (Benadryl Inj.) (10/27/24 13:50) Ct Abdomen Pelvis (10/27/24 15:55) Hs Troponin I W Calculations (10/27/24 13:51) Electrocardiogram (10/27/24 ) Iohexol 300mg/Ml 100ml Inj. (Omnipaque-3 (10/27/24 14:03) Medications Received in ER Medications (Trade) Dose Ordered Sig/Quin Route PRN Reason Start Time Stop Time Status Last Admin Dose Admin (Zofran 4mg/2ml vial) 8 mg ONCE ONCE IV 10/27/24 13:15 10/27/24 13:16 DC 10/27/24 13:29 8 MG Sodium Chloride 1,000 ml @ 1,000 mls/hr ONCE ONCE IV 10/27/24 13:15 10/27/24 14:14 DC 10/27/24 13:29 1,000 MLS/HR (Protonix 40mg IV) 40 mg ONCE STAT IV 10/27/24 13:14 10/27/24 13:17 DC 10/27/24 13:28 40 MG Potassium Chloride 100 ml @ 100 mls/hr Q1H IV 10/27/24 13:20 10/27/24 14:19 DC 10/27/24 13:29 100 MLS/HR (Compazine inj) 10 mg ONCE ONCE IV 10/27/24 13:50 10/27/24 13:53 DC 10/27/24 14:04 10 MG (Benadryl inj.) 50 mg ONCE ONCE IV 10/27/24 13:50 10/27/24 13:51 DC 10/27/24 14:03 50 MG Vital Signs 10/27/24 10/27/24 10/27/24 10/27/24 12:01 12:20 13:00 14:24 Temp 98.1 Pulse 85 80 77 Resp 16 18 16 B/P (MAP) 99/68 (78) 112/80 (91) Pulse Ox 95 98 98 O2 Flow Rate 0 0 10/27/24 10/27/24 10/27/24 15:25 16:30 17:30 Pulse 75 84 92 Resp 18 18 16 B/P (MAP) 108/67 (81) 108/67 (81) 118/71 (87) Pulse Ox 98 96 99 O2 Flow Rate 0 0 0 Laboratory Tests Test 10/27/24 12:28 10/27/24 13:00 10/27/24 14:02 White Blood Count 25.2 *H Red Blood Count 5.00 Hemoglobin 14.1 Hematocrit 42.1 Mean Corpuscular Volume 84.2 Mean Corpuscular Hemoglobin 28.3 Mean Corpuscular Hemoglobin Concent 33.6 Red Cell Distribution Width 13.6 Platelet Count 464 H Mean Platelet Volume 9.0 Neutrophils (%) (Auto) 86.2 H Lymphocytes (%) (Auto) 7.5 L Monocytes (%) (Auto) 6.0 Eosinophils (%) (Auto) 0 Basophils (%) (Auto) 0.3 Neutrophils # (Auto) 21.7 H Lymphocytes # (Auto) 1.9 Monocytes # (Auto) 1.5 H Eosinophils # (Auto) 0.0 Basophils # (Auto) 0.1 CBC Comment Differential Total Cells Counted 100 Neutrophils % (Manual) 85.0 H Lymphocytes % (Manual) 8.0 L Monocytes % (Manual) 7.0 Platelet Estimate Increased Red Blood Cell Morphology Normal Basophilic Stippling Sodium Level 142 Potassium Level 3.4 L Chloride Level 99 Carbon Dioxide Level 33.1 H Anion Gap 10 Blood Urea Nitrogen 17 Creatinine 0.95 H Estimated GFR/1.73 m2 69 BUN/Creatinine Ratio 17.9 Glucose Level 121 H Calcium Level 9.7 Magnesium Level 2.0 Total Bilirubin 1.7 H Aspartate Amino Transf (AST/SGOT) 26 Alanine Aminotransferase (ALT/SGPT) 18 Alkaline Phosphatase 82 Total Protein 8.9 H Albumin 4.4 Globulin 4.5 H Albumin/Globulin Ratio 1.0 L Lipase 12 L Human Chorionic Gonadotropin, Qual Negative Chemistry Comments Urine Specimen Description Cln catch midstream Urine Color Yellow Urine Clarity Cloudy Urine pH 8.0 Urine Specific [place] 1.010 Urine Protein 100 H Urine Glucose (UA) Negative Urine Ketones >=80 Urine Occult Blood Moderate H Urine Nitrite Negative Urine Bilirubin Small Urine Urobilinogen 1.0 Urine Leukocyte Esterase Negative Urine RBC 3-10 Urine WBC 0-4 Urine Squamous Epithelial Cells Many Urine Bacteria 1+ Urine Mucus Moderate Urine Culture Indicated Not ind Volume Urine Centrifuged 10 ml Urine HCG, Qualitative Negative Urine Comment Troponin I High Sensitivity 6 Medical Decision Making Findings EKG medically necessary in the evaluation of intractable vomiting and interpreted by me at the time of patient evaluation. Rhythm is sinus arrhythmia with a rate of 73. Impression: Borderline EKG. ECG reading does not show any acute signs of obvious ischemia. No evidence of A- V block. No short OR, delta waves, or wide QRS concerning for Veewd-Orhopthez-Vgdyj. No long QT events on my read. I do not see evidence of Brugada with ST elevations in V1 through V3. No epsilon wave noted. No low voltage suggestive of pericardial effusion. No right ventricular strain pattern. [place] [address] her abdomen which is consistent with colitis. She has improved in the emergency department. Patient succeeded at a fluid challenge. She would like to go home. Departure Disposition: HOME / SELF CARE / HOMELESS Impression: Primary Impression: Colitis Condition: Stable Discharge Instructions: Nausea and Vomiting, Adult Referrals: NO PRIMARY CARE PROVIDER (PCP) Signature Scribe Signature: . Attestation: . DEIDRA RYAN MD Oct 27, 2024 13:16
[2024-10-27 13:21] LABS: HCG SERUM QL NEGATIVE
[2024-10-27] MEDS: potassium CL 10mEq/100ml bag 100 ML IV SCH (13:29)
[2024-10-27] MEDS: normal saline 1000ml 1,000 ML IV ONE (13:29)
[2024-10-27] MEDS: ondansetron/PF 4mg/2ml inj IV ONE (13:29)
[2024-10-27 13:37] LABS: URINE HCG NEGATIVE (NEG)
[2024-10-27 13:39] LABS: LEUKOCYTE ESTERASE ,URINE NEGATIVE (Neg); NITRITES, URINE NEGATIVE (Neg); OCCULT BLOOD,URINE MODERATE (Neg)
[2024-10-27 13:41] LABS: UA COLLECTION TYPE CLN CATCH MIDSTREAM
[2024-10-27 13:51] LABS: MUCUS STRANDS MODERATE /LPF (Neg); SQUAMOUS EPITHELIAL CELL,UR MANY /LPF (FEW)
--- NOTE | 2024-10-27 13:59 | ELECTROCARDIOGRAPH REPORT ---
[facility] Test Date: 2024-10-27 Test Time: 13:57:24 Pat Name: ANTOINE ESCOBAR [facility]- [id number] Room: Gender: F Health Information Specialist: : 1990 Requested By: DEIDRA RYAN Order Number: [id number] Reading MD: Measurements Intervals [place] Rate: 73 P: 54 OR: 111 QRS: 52 QRSD: 95 T: -8 QT: 411 QTc: 453 Interpretive Statements Sinus arrhythmia Borderline short OR interval Borderline repolarization abnormality Please click the below link to view image of tracing.
[2024-10-27] MEDS ORDERED: iohexol 300mg/ml 100ml inj. ONE (14:03)
[2024-10-27 14:25] LABS: LYMPHOCYTES % (MANUAL) 8.0 % (21-51); MONOCYTES % (MANUAL) 7.0 % (2-12); NEUTROPHILS % (MANUAL) 85.0 % (42-75); PLATELET ESTIMATE INCREASED
--- NOTE | 2024-10-27 16:15 | RADIOLOGY REPORT ---
Indication: Intractable vomiting, WBC 25.2 Technique: CT axial images of the abdomen and pelvis are obtained with intravenous contrast. Coronal and sagittal reformats were obtained. Radiation Dose Information: CTDI volume is 23 mGy. Dose-length product is 1258 mGy*cm Comparison: None FINDINGS: Lung bases demonstrate no pleural effusion. Adrenal glands, spleen and pancreas unremarkable. No enhancing hepatic lesion. Subcentimeter hepatic hypodensities, too small to characterize statistically likely cysts. Cholecystectomy. Distal esophageal wall thickening. Kidneys demonstrate no hydronephrosis. Stomach is partially distended. Small bowel loops are normal in caliber. Colonic diverticula. Mild bowel wall thickening of the large bowel. Fatty prominence of the large bowel wall. Normal appendix. Abdominal aorta normal in caliber. Bladder partially distended. Left ovarian/adnexal cystic lesion measuring 2.5 cm. No free pelvic fluid. No inguinal lymphadenopathy. No aggressive osseous process. IMPRESSION: Large bowel wall thickening and fatty prominence which can be secondary to inflammatory bowel disease. Other considerations include colitis. Left ovarian / adnexal cystic lesion measuring 2.5 cm. Distal esophageal wall thickening. Correlate for esophagitis and other etiologies.
[2024-10-27 18:27] VITALS: BP 105/62; PULSE 75; RESP 16; TEMP 98.1; O2SAT 99
[2024-10-28] MEDS ORDERED: OLAN-38 PO (11:23)
[2024-10-28] MEDS ORDERED: ONDA-243 PO (11:23)
== END 2024-10-27 18:20 | disposition home or self-care (01) ==
LOC: ER 11:53
DX: K52.9 Noninfective gastroenteritis and colitis, unspecified (principal); F12.90 Cannabis use, unspecified, uncomplicated; Z90.49 Acquired absence of other specified parts of digestive tract; Z91.048 Other nonmedicinal substance allergy status; Z91.040 Latex allergy status; Z88.2 Allergy status to sulfonamides; Z79.899 Other long term (current) drug therapy
CPT/HCPCS: 36415; 74177; 80053; 81001; 81025; 83690; 83735; 84484; 84703; 85007; 85025; 93005; 96361; 96365; 96375; 99285; J0780; J1200; J2405; J2470; J3480; J7030; Q9967

== ENCOUNTER 2024-10-28 10:32 | Emergency (ER) | payer MEDICAID ==
[~2024-10-28] VITALS: Ht 165.1 cm; Wt 81.8 kg
[2024-10-28 11:16] LABS: MEAN PLATELET VOLUME 8.8 FL (7.4-10.4); RED CELL DISTRIBUTION WIDTH 13.5 % (11.5-14.5)
[2024-10-28] MEDS ORDERED: OLAN-38 PO (11:23)
[2024-10-28] MEDS ORDERED: ONDA-243 PO (11:23)
--- NOTE | 2024-10-28 11:23 | Physician Documentation ---
History of Present Illness ~ Chief Complaint: Vomiting Stated Complaint: VOMITING Time Seen by MD: 11:11 Primary Medical Doctor: [facility] CYNDEE GRANT Patient is seen today with complaints of severe episode of vomiting that started almost three days ago and she has not been able to hold down any liquid or solids since that time. Patient states she was seen and treated here yesterday some medications that helps for a little while and given a L of fluid but states she has been vomiting all night again. Patient does admit to have the use of marijuana states she stopped smoking that a couple of days ago when he symptoms of nausea and vomiting started. Patient denies any fever or chills and has no other concern or complaint at this time. Medication Reconciliation Allergies: Coded Allergies: Latex, Natural Rubber (Unverified Allergy, Unknown, 10/28/24) Sulfa (Sulfonamide Antibiotics) (Unverified Allergy, Unknown, 10/28/24) adhesive (Verified Allergy, Unknown, 10/28/24) Scheduled Gabapentin (Gabapentin), 900 MG PO DAILY, (Reported) Ondansetron Hcl (Zofran), 1 TAB PO Q8H Past Medical History Past Medical History: *GI/HEPATOBILIARY*, Cholelithiasis Past Surgical History: cholecystectomy Alcohol Use: None Drug Use: marijuana Lives In: Home Review of Systems Constitutional: Denies: chills, fever, weakness Eyes: Denies: pain, blurred vision ENT: Denies: ear pain, nose pain, throat pain, mouth pain Respiratory: Denies: cough, shortness of breath Cardiovascular: Denies: chest pain, palpitations Gastrointestinal: Denies: abdominal pain, nausea, vomiting Genitourinary: Denies: burning, dysuria Female Genitalia: Denies: vaginal discharge, pelvic pain Neurological: Denies: headache, dizziness Musculoskeletal: Denies: pain, swelling Integumentary: Denies: rash, lesions Allergic/Immunologic: Denies: hives, itching Hematologic/Lymphatic: Denies: no symptoms reported Psychiatric: Denies: depression, anxiety Physical Exam Vital Signs: Temperature: 97.2, Source: Temporal, Heart Rate: 72, Respiratory Rate: 18, BP: 126/62, Pulse Oximetry: 100, Weight: 81.820 Physical Exam General: Awake and Alert, no acute distress. HEENT: Conjunctiva pink, Sclera clear, Mucus Membranes moist. Neck: Supple without masses and tenderness. Resp: Unlabored. Lungs clear to auscultation bilaterally. Heart: Regular Rate and rhythm, normal S1 and S2 without murmur, rub or gallop. Abdomen: Soft and non tender no organomegaly Extremities: No cyanosis,clubbing or edema. Skin: Warm and Dry. Progress Results/Orders Results/Orders Orders - ELIS SILVA Urinalysis, Cult If Indicated (10/28/24 10:41) Cbc/Diff (10/28/24 10:41) Amylase (10/28/24 10:41) Lipase (10/28/24 10:41) CMP (10/28/24 10:41) Vital Signs 10/28/24 10:38 Temp 97.2 Pulse 72 Resp 18 B/P (MAP) 126/62 Pulse Ox 100 Laboratory Tests Test 10/28/24 11:01 Medical Decision Making Findings Patient is seen today with complaints of severe episode of vomiting that started almost three days ago and she has not been able to hold down any liquid or solids since that time. Patient states she was seen and treated here yesterday some medications that helps for a little while and given a L of fluid but states she has been vomiting all night again. Patient does admit to have the use of marijuana states she stopped smoking that a couple of days ago when he symptoms of nausea and vomiting started. Patient denies any fever or chills and has no other concern or complaint at this time. Patient was started on 10 mg of Compazine IV, L of normal saline IV, and 10 mg of Zyprexa IM in the ED today. Patient's symptoms improved significantly. Patient is sent home with prescription of Zyprexa to be taken at night only for few days the as well as nausea medication. The patient given strict instructions to discontinue use of any and all cannabis. Patient will return to ED with any worsening, concerning or changing symptoms. Departure Disposition: HOME / SELF CARE / HOMELESS Impression: Primary Impression: Cannabinoid hyperemesis syndrome Condition: Improved Discharge Instructions: Cannabinoid Hyperemesis Syndrome Additional Instructions: Patient was started on 10 mg of Compazine IV, L of normal saline IV, and 10 mg of Zyprexa IM in the ED today. Patient's symptoms improved significantly. Patient is sent home with prescription of Zyprexa to be taken at night only for few days the as well as nausea medication. The patient given strict instructions to discontinue use of any and all cannabis. Patient will return to ED with any worsening, concerning or changing symptoms. Referrals: NO PRIMARY CARE PROVIDER (PCP) Prescriptions Olanzapine (Olanzapine) 10 Mg Tablet 1 TAB PO HS for 7 Days, #7 TAB 0 Refills Prov: ELIS SILVA 10/28/24 ONDANSETRON ODT 4mg tablet (ONDANSETRON ODT) 4 Mg Tab.rapdis 4 MG PO BID for 7 Days, #14 TAB Prov: ELIS SILVA 10/28/24 Signature Scribe Signature: No scribe Attestation: No scribe ELIS SILVA PAC Oct 28, 2024 11:23
[2024-10-28 11:30] LABS: CREATININE 0.82 MG/DL (0.40-0.90); TOTAL CARBON DIOXIDE 27.2 MMOL/L (24-32); eCRCL 89 ML/MIN; eGFR 81 ML/MIN
[2024-10-28] MEDS: normal saline 1000ml 1,000 ML IV STA ×2 (13:31→15:06)
[2024-10-28] MEDS: OLANZapine **IM** 10 mg inj. IM STA (13:35)
[2024-10-28] MEDS: ondansetron/PF 4mg/2ml inj IV STA (15:07)
[2024-10-28 16:25] VITALS: BP 124/83; PULSE 66; RESP 13; TEMP 98.8; O2SAT 99
== END 2024-10-28 16:26 | disposition home or self-care (01) ==
LOC: ER 10:33
DX: R11.10 Vomiting, unspecified (principal); F12.90 Cannabis use, unspecified, uncomplicated; Z91.040 Latex allergy status; Z88.2 Allergy status to sulfonamides; Z91.048 Other nonmedicinal substance allergy status; Z79.899 Other long term (current) drug therapy; Z90.49 Acquired absence of other specified parts of digestive tract
CPT/HCPCS: 36415; 80053; 82150; 83690; 85025; 96361; 96372; 96374; 96375; 99284; J0780; J2405; J3490; J7030